=== PATIENT | female | born 1940 | race Caucasian/White ===

== ENCOUNTER 2017-09-03 15:35 | Emergency (ER) | payer OTHER ==
--- OUTSIDE RECORDS SUMMARY | 2017-09-03 15:38 | XMS REPORT | Clinical Summary ---
:1940 Author Organization [facility] Address [address] [place] [id number] Care Team Providers Name Role Phone Brenton Schafer MD Primary Care Provider Allergies No Known Allergies Current Medications Prescription Sig. Disp. Refills Start Date End Date Status amLODIPine (NORVASC) 10 daily. 06/24/2016 Active mg tablet lisinopril daily. 06/24/2016 Active (PRINIVIL,ZESTRIL) 40 mg tablet FLUoxetine (PROzac) 20 MG daily. 06/23/2016 Active capsule omeprazole (PriLOSEC) 20 daily. 06/24/2016 Active MG capsule dicyclomine (BENTYL) 10 30 min before 08/21/2016 Active MG capsule eating 1-3 times a day traMADol (ULTRAM) 50 mg Every 8 hrs prn 08/21/2016 Active tablet Active Problems Not on file Encounters Date Type Specialty Care Team Description 10/13/2016 Office Visit General Surgery Arjun Farrell Other constipation ( Primary Dx); MD Cristóbal Fecal incontinence alternating with constipation; Abdominal pain, generalized 09/25/2016 Procedure Pass Gastroenterology after 09/02/2016 Family History Medical History Relation Name Comments Diabetes Brother Arthritis Father Heart disease Father Colon cancer Mother Ulcerative colitis Mother Relation Name Status Comments Brother Father Mother Social History Tobacco Use Types Packs/Day Years Used Date Former Smoker Cigarettes Quit: 1990 Smokeless Tobacco: Never Used Alcohol Use Drinks/Week oz/Week Comments No Sex Assigned at Date Recorded Not on file Last Filed Vital Signs Vital Sign Reading Time Taken Blood Pressure 120/69 10/13/2016 1:37 PM CDT Pulse 67 10/13/2016 1:37 PM CDT Temperature - - Respiratory Rate - - Oxygen Saturation - - Inhaled Oxygen Concentration - - Weight - - Height - - Body Mass Index - - Plan of Treatment Health Maintenance Due Date Last Done Comments BREAST CANCER SCREENING 1992 COLON CANCER SCREENING 1992 SHINGRIX VACCINE (#1) 1992 ZOSTER VACCINE 2002 PNEUMOCOCCAL POLYSACCHARIDE VACCINE AGE 65 AND OVER 06/18/2007 PNEUMOCOCCAL-13 06/18/2007 INFLUENZA VACCINE 10/28/2017 Results Not on fileafter 09/02/2016 Insurance Payer Benefit Plan / Group Subscriber ID Type Phone Address [facility] x[facility] O
[2017-09-03 17:13] LABS: Absolute Lymphocytes (CBC) 2.6 K/uL (0.7-4.9); Absolute Monocytes 0.7 K/uL (0.1-1.3); Absolute Neutrophil 6.5 K/uL (1.8-8.0); Basophils % 1.3 % (0-1.3); Eosinophils % 2.7 % (0-4.4); Hematocrit 35.2 % (36.0-45.0); Lymphocytes % 25.4 % (15.3-44.8); MCH 29.1 pg (27.0-35.0); MCV 87.7 fL (80-100); MPV 8.3 fL (7.6-11.3); Monocytes % 6.8 % (3.3-12.3); RBC Red Blood Cell Count 4.01 M/uL (3.86-4.86)
[2017-09-03 17:23] LABS: Protime INR 1.04
[2017-09-03 17:28] LABS: Potassium 3.7 mEq/L (3.6-5.0)
--- NOTE | 2017-09-03 17:31 | RAD REPORT ---
EXAM DESCRIPTION: RAD - Chest Single View - 09/03/2017 5:08 pm CLINICAL HISTORY: Dyspnea, lower extremity and upper extremity swelling COMPARISON: February 2007 TECHNIQUE: AP portable chest image was obtained 1705 hour . FINDINGS: No peripheral mass or consolidation. No pulmonary edema pattern seen. Upper lobe vasculatu re within normal limits. Heart size is normal and stable. Trachea is midline. No measurable pleural e ffusion and no pneumothorax. No gross bony abnormality seen. No acute aortic findings suspected. IMPRESSION: No CHF or volume overload findings. Mildly prominent interstitial markings are stable.
[2017-09-03] MEDS ORDERED: FUROSEMIDE 40 MG/4 ML VIAL ONE (18:06)
--- NOTE | 2017-09-03 18:38 | EDPHYS ---
Physician Documentation [facility] Name: So Jarrett Age: 77 yrs Sex: Female : 1940 Arrival Date: 09/03/2017 Time: 15:39 Bed 30 Private MD: Brenton Schafer ED Physician Herbert Reynolds HPI: 09/03 17:20 This 77 yrs old Female presents to ER via Ambulatory with complaints of jr8 Facial Swelling, Feet Swelling, Leg Swelling. 17:20 Patient stated that she will have mild swelling of lower extremities from time to time. jr8 For the past week has noticed increase in that swelling along with hand swelling and facial puffiness. No recent change in medication. Stated that she feels lightheaded and short of breath at times as well . Severity of symptoms: At their worst the symptoms were moderate in the emergency department the symptoms have improved. The patient has not experienced similar symptoms in the past. The patient has not recently seen a physician. Historical: - Allergies: 16:11 No Known Allergies; ch - Home Meds: 16:11 pantoprazole 40 mg Oral TbEC [Active]; fluoxetine 20 mg Oral cap 1 cap once daily ch [Active]; Lyrica 50mg Oral 1 cap 2 times per day [Active]; dicyclomine 10 mg Oral cap 1 cap 3 times per day [Active]; Phenergan Oral 12.5 mg as needed [Active]; Apriso 0.375 gram oral cp24 4 caps once daily [Active]; tramadol 50 mg Oral tab [Active]; amlodipine 10 mg tab 1 tab once daily [Active]; losartan 100 mg oral tab 1 tab once daily [Active]; - PMHx: 16:11 Hypertension; GERD; neuropathy; Hyperlipidemia; slipped disc in back; ch - PSHx: 16:11 Appendectomy; Cholecystectomy; small and large intestines; Hysterectomy; hemorrhoids; ch - Immunization history:: Adult Immunizations up to date, . - Social history:: Smoking status: Patient/guardian denies using tobacco, Patient/guardian denies using alcohol, street drugs. - Ebola Screening: : Patient negative for fever greater than or equal to 101.5 degrees Fahrenheit, and additional compatible Ebola Virus Disease symptoms Patient denies exposure to infectious person Patient denies travel to an Ebola-affected area in the 21 days before illness onset No symptoms or risks identified at this time. ROS: 17:20 Eyes: Negative for injury, pain, redness, and discharge, ENT: Negative for injury, jr8 pain, and discharge, Neck: Negative for injury, pain, and swelling, Abdomen/GI: Negative for abdominal pain, nausea, vomiting, diarrhea, and constipation, Back: Negative for injury and pain, MS/Extremity: Negative for injury and deformity, Skin: Negative for injury, rash, and discoloration, Neuro: Negative for headache, weakness, numbness, tingling, and seizure. 17:20 Cardiovascular: Positive for edema, Negative for chest pain, orthopnea, palpitations, paroxysmal nocturnal dyspnea. 17:20 Respiratory: Positive for dyspnea on exertion, Negative for shortness of breath, sputum production, wheezing. Exam: 17:20 Eyes: Pupils equal round and reactive to light, extra-ocular motions intact. Lids and jr8 lashes normal. Conjunctiva and sclera are non-icteric and not injected. Cornea within normal limits. Periorbital areas with no swelling, redness, or edema. ENT: Nares patent. No nasal discharge, no septal abnormalities noted. Tympanic membranes are normal and external auditory canals are clear. Oropharynx with no redness, swelling, or masses, exudates, or evidence of obstruction, uvula midline. Mucous membranes moist. Neck: Trachea midline, no thyromegaly or masses palpated, and no cervical lymphadenopathy. Supple, full range of motion without nuchal rigidity, or vertebral point tenderness. No Meningismus. Respiratory: Lungs have equal breath sounds bilaterally, clear to auscultation and percussion. No rales, rhonchi or wheezes noted. No increased work of breathing, no retractions or nasal flaring. Abdomen/GI: Soft, non-tender, with normal bowel sounds. No distension or tympany. No guarding or rebound. No evidence of tenderness throughout. Back: No spinal tenderness. No costovertebral tenderness. Full range of motion. Skin: Warm, dry with normal turgor. Normal color with no rashes, no lesions, and no evidence of cellulitis. MS/ Extremity: Pulses equal, no cyanosis. Neurovascular intact. Full, normal range of motion. Neuro: Awake and alert, GCS 15, oriented to person, place, time, and situation. Cranial nerves II-XII grossly intact. Motor strength 5/5 in all extremities. Sensory grossly intact. Cerebellar exam normal. Normal gait. 17:20 Cardiovascular: Rate: normal, Rhythm: regular, Pulses: Pulses are 2+ in right radial artery and left radial artery. Heart sounds: normal, normal S1and S2, no S3 or S4, no murmur, no rub, no gallop, Edema: 2+ edema to level of left midcalf, left ankle, left foot, left toes, right midcalf, right ankle, right foot and right toes, JVD: is not appreciated. Vital Signs: 16:11 BP 151 / 72; Pulse 79; Resp 18; Temp 99.3; Pulse Ox 97% on R/A; Weight 97.07 kg; Height ch 5 ft. 2 in. (157.48 cm); Pain 6/10; 17:13 BP 146 / 51; Pulse 74; Resp 16; Pulse Ox 97% on R/A; Pain 6/10; ed1 18:35 BP 142 / 69; Pulse 72; Resp 17; Pulse Ox 100% on R/A; Pain 6/10; ed1 16:11 Body Mass Index 39.14 (97.07 kg, 157.48 cm) [facility]: 16:13 Patient medically screened. jr8 18:34 Data reviewed: vital signs, nurses notes, lab test result(s), EKG, radiologic studies, [facility] plain films, and as a result, I will discharge patient. Data interpreted: Pulse oximetry: on room air is 97 %. Interpretation: normal. Counseling: I had a detailed discussion with the patient and/or guardian regarding: the historical points, exam findings, and any diagnostic results supporting the discharge/admit diagnosis, lab results, radiology results, the need for outpatient follow up, a family practitioner, to return to the emergency department if symptoms worsen or persist or if there are any questions or concerns that arise at home. ED course: Discussed with patient that heart looks fine. Mild renal insufficiency which she has had in past and has seen nephrology before for. That she is on 10 mg of Amlodipine. This could explain some of the swelling. No other acute findings to suggest any other reason for swelling. Needs to f/u with PCP and nephrology . 09/03 16:39 Order name: Basic Metabolic Panel; Complete Time: 17:30 [facility] 09/03 16:39 Order name: BNP; Complete Time: 17:52 09/03 16:39 Order name: CBC with Diff; Complete Time: 17:18 09/03 16:39 Order name: PT-INR; Complete Time: 17:30 09/03 16:39 Order name: Troponin (emerg Dept Use Only); Complete Time: 17:52 09/03 18:39 Order name: Urine Dipstick--Ancillary (enter results) ag 09/03 16:39 Order name: XRAY Chest (1 view); Complete Time: 17:52 09/03 16:39 Order name: EKG; Complete Time: 16:39 09/03 16:39 Order name: Cardiac monitoring; Complete Time: 17:09/03 16:39 Order name: EKG - Nurse/Tech; Complete Time: 17:09/03 16:39 Order name: IV Saline Lock; Complete Time: 17:09 09/03 16:39 Order name: Labs collected and sent; Complete Time: 17:09/03 16:39 Order name: O2 Per Protocol; Complete Time: 17:09 09/03 16:39 Order name: O2 Sat Monitoring; Complete Time: 17:09/03 16:39 Order name: Urine Dipstick-Ancillary (obtain specimen); Complete Time: 18:36 Administered Medications: 18:18 Drug: Lasix 40 mg Route: IVP; Site: left antecubital; 18:35 Follow up: Urine output 240 ml; Response: No adverse reaction ed1 Disposition: 09/03/17 18:37 Discharged to Home. Impression: Edema, unspecified. - Condition is Stable. - Discharge Instructions: Edema. - Medication Reconciliation Form, Thank You Letter, Antibiotic Education, Prescription Opioid Use form. - Follow up: Brenton Schafer MD; When: 2 - 3 days; Reason: Recheck today's complaints, Continuance of care, Re-evaluation by your physician. - Problem is new. - Symptoms have improved. Addendum: 09/11/2017 11:33 Co-signature as Attending Physician, Herbert Reynolds MD. g s Signatures: Dispatcher [facility] Kassidy Martinez RN RN Monalisa Engel RN RN ss Marsha Coello, BATCH ROLLER OPERATOR BATCH ROLLER OPERATOR ed1 Fransico Frias PA PA jr8 Herbert Reynolds MD MD gs Corrections: (The following items were deleted from the chart) 09/03 19:10 18:37 09/03/2017 18:37 Discharged to Home. Impression: Edema, unspecified. Condition is ed1 Stable. Forms are Medication Reconciliation Form, Thank You Letter, Antibiotic Education, Prescription Opioid Use. Follow up: Brenton Schafer; When: 2 - 3 days; Reason: Recheck today's complaints, Continuance of care, Re-evaluation by your physician. Problem is new. Symptoms have improved. jr8
--- NOTE | 2017-09-03 18:38 | ER ---
Nurse's Notes [facility] Emergency Department Name: So Jarrett Age: 77 yrs Sex: Female : 1940 Arrival Date: 09/03/2017 Time: 15:39 Bed 30 Private MD: Brenton Schafer Diagnosis: Edema, unspecified Presentation: 09/03 16:06 Presenting complaint: Patient states: swelling to celio legs, arms, and face for "a ch while". worse since this morning. Transition of care: patient was not received from another setting of care. Onset of symptoms was September 03, 2017. Care prior to arrival: None. 16:06 Method Of Arrival: Ambulatory 16:06 Acuity: VALE 3 ch 17:13 Risk Assessment: Do you want to hurt yourself or someone else? Patient reports no ed1 desire to harm self or others. Initial Sepsis Screen: Does the patient meet any 2 criteria? No. Patient's initial sepsis screen is negative. Does the patient have a suspected source of infection? No. Patient's initial sepsis screen is negative. Triage Assessment: 16:11 General: Appears in no apparent distress. comfortable, Behavior is calm, cooperative, ch appropriate for age. Pain: Complains of pain in thoracic area and lumbar area Pain currently is 6 out of 10 on a pain scale. Pain began years ago. Respiratory: Reports shortness of breath at rest Airway is patent Respiratory effort is even, unlabored. Historical: - Allergies: 16:11 No Known Allergies; ch - Home Meds: 16:11 pantoprazole 40 mg Oral TbEC [Active]; fluoxetine 20 mg Oral cap 1 cap once daily [Active]; Lyrica 50mg Oral 1 cap 2 times per day [Active]; dicyclomine 10 mg Oral cap 1 cap 3 times per day [Active]; Phenergan Oral 12.5 mg as needed [Active]; Apriso 0.375 gram oral cp24 4 caps once daily [Active]; tramadol 50 mg Oral tab [Active]; amlodipine 10 mg tab 1 tab once daily [Active]; losartan 100 mg oral tab 1 tab once daily [Active]; - PMHx: 16:11 Hypertension; GERD; neuropathy; Hyperlipidemia; slipped disc in back; ch - PSHx: 16:11 Appendectomy; Cholecystectomy; small and large intestines; Hysterectomy; hemorrhoids; ch - Immunization history:: Adult Immunizations up to date, . - Social history:: Smoking status: Patient/guardian denies using tobacco, Patient/guardian denies using alcohol, street drugs. - Ebola Screening: : Patient negative for fever greater than or equal to 101.5 degrees Fahrenheit, and additional compatible Ebola Virus Disease symptoms Patient denies exposure to infectious person Patient denies travel to an Ebola-affected area in the 21 days before illness onset No symptoms or risks identified at this time. Screenin:13 Abuse screen: Denies threats or abuse. Denies injuries from another. Nutritional ed1 screening: No deficits noted. Tuberculosis screening: No symptoms or risk factors identified. Fall Risk None identified. Assessment: 17:13 Reassessment: Patient appears in no apparent distress at this time. No changes from ed1 previously documented assessment. Patient and/or family updated on plan of care and expected duration. Pain level reassessed. Patient is alert, oriented x 3, equal unlabored respirations, skin warm/dry/pink. 18:35 Reassessment: Patient appears in no apparent distress at this time. No changes from ed1 previously documented assessment. Patient and/or family updated on plan of care and expected duration. Pain level reassessed. Patient is alert, oriented x 3, equal unlabored respirations, skin warm/dry/pink. Vital Signs: 16:11 BP 151 / 72; Pulse 79; Resp 18; Temp 99.3; Pulse Ox 97% on R/A; Weight 97.07 kg; Height 5 ft. 2 in. (157.48 cm); Pain 6/10; 17:13 BP 146 / 51; Pulse 74; Resp 16; Pulse Ox 97% on R/A; Pain 6/10; ed1 18:35 BP 142 / 69; Pulse 72; Resp 17; Pulse Ox 100% on R/A; Pain 6/10; ed1 16:11 Body Mass Index 39.14 (97.07 kg, 157.48 cm) ED Course: 15:39 Patient arrived in ED. sb2 15:40 Brenton Schafer MD is Private Physician. sb2 16:06 Triage completed. 16:11 Arm band placed on right wrist. Patient placed in an exam room, on a stretcher. 16:13 Marsha Coello LVN is Primary Nurse. ed1 16:13 Fransico Frias PA is PHCP. jr8 16:13 Herbert Reynolds MD is Attending Physician. jr8 16:50 EKG done, by oxygen therapy technician. reviewed by Fransico MÁRQUEZ. 3 17:06 XRAY Chest (1 view) In Process Unspecified. EDMS 17:08 Initial lab(s) drawn, by nv, sent to lab. Inserted saline lock: 22 gauge in left ed1 antecubital area, using aseptic technique. Blood collected. 17:13 Patient has correct armband on for positive identification. Placed in gown. Bed in low ed1 position. Side rails up X2. Adult w/ patient. 18:37 Brenton Schafer MD is Referral Physician. jr8 19:08 No provider procedures requiring assistance completed. IV discontinued, intact, ed1 bleeding controlled, No redness/swelling at site. Pressure dressing applied. Administered Medications: 18:18 Drug: Lasix 40 mg Route: IVP; Site: left antecubital; 18:35 Follow up: Urine output 240 ml; Response: No adverse reaction ed1 Output: 18:35 Urine: 240ml; Total: 240ml. ed1 Outcome: 18:37 Discharge ordered by . jr8 19:08 Discharged to home ambulatory, with significant other. ed1 19:08 Condition: good 19:08 Discharge instructions given to patient, family, Instructed on discharge instructions, follow up and referral plans. Demonstrated understanding of instructions, follow-up care. 19:10 Patient left the ED. ed1 Signatures: Dispatcher [employer] [facility] Kassidy Martinez, RN RN Monalisa Engel RN RN ss Mode, Marsha, SENIOR BUSINESS DEVELOPMENT ANALYST SENIOR BUSINESS DEVELOPMENT ANALYST ed1 Fransico Frias PA PA jr8 Ivone Tineo Shakira 3
[2017-09-03 19:23] LABS: Urine Blood NEGATIVE (NEG); Urine Glucose NEGATIVE (NEG); Urine Protein NEGATIVE (NEG); Urine pH 5.5 (5.0-7.0)
[2017-09-03 19:40] VITALS: TEMP 99.3
[2017-09-03 19:42] VITALS: BP 142/69; O2SAT 100
--- NOTE | 2017-09-04 07:21 | EKG ---
Test Date: 2017-09-03 Test Time: 16:45:21 Hand Singer: SINGH MEASUREMENT RESULTS: Intervals: Rate: 74 [place]: 144 QRSD: 76 QT: 380 QTc: 421 [place]: P: 36 NJ: 144 QRS: 39 T: 58 INTERPRETIVE STATEMENTS: Normal sinus rhythm Low voltage QRS Borderline ECG Compared to ECG 03/23/2017 22:59:26 Low QRS voltage now present Electronically Signed On 09-04-17 07:19:43 CDT by Valente Dobbs
== END 2017-09-03 19:10 | disposition home or self-care (01) ==
LOC: ER 15:35
DX: R60.9 Edema, unspecified (principal); I10 Essential (primary) hypertension; E78.5 Hyperlipidemia, unspecified
CPT/HCPCS: 36415; 71045; 80048; 81003; 83880; 84484; 85025; 85610; 93005; 96374; 99284